=== PATIENT | male | born 1980 | race Caucasian/White ===

== ENCOUNTER 2021-08-20 01:33 | Emergency (ER) | payer BC, SELFPAY ==
[2021-08-20 01:41] VITALS: BP 154/92; PULSE 92; RESP 20; TEMP 36.8; O2SAT 97
[2021-08-20] MEDS: AMOXICILLIN/CLAVULANATE K 875-125 MG TAB 1 TABLET PO (01:54)
--- NOTE | 2021-08-20 02:06 | ED.ANIMALBIT ---
HPI - Animal Bite General Chief Complaint: Animal Bite Stated Complaint: dog bite to face - small lac to left jaw Time Seen by Provider: 08/20/21 01:38 Source: patient and family Mode of arrival: ambulatory Limitations: no limitations History of Present Illness HPI narrative: 41-year-old male presenting to the emergency department for evaluation of a laceration from a dog bite to his left chin. Patient states this is his dog of 15 years. Patient states he went to wake up his and the dog became startled and snapped at his face causing a laceration to the left jaw. Related Data Allergies Allergy/AdvReac Type Severity Reaction Status Date / Time No Known Allergies Allergy Mild Verified 08/20/21 01:44 Review of Systems Review of Systems: SKIN: Laceration to left jaw All systems reviewed & are unremarkable except as noted in HPI and below Exam Narrative: APPEARANCE: Well appearing, no pain, no distress, well-nourished. HEAD: normocephalic, atraumatic. EYES: PERRLA/EOMI, conjunctivae clear. NOSE: Normal no drainage EARS:TMS clear with good light reflex. SKIN: 1 cm laceration to left jaw Course Course Emergency Course: Laceration was repaired as described above. Wound was cleansed. Patient was started on Augmentin. Repaired as described in the procedure section. Laceration was closed with 2 sutures for cosmetic appearance. Wound was not closed tightly. Vital Signs Vital signs: Vital Signs Temperature 98.2 F 08/20/21 01:41 Pulse Rate 92 08/20/21 01:41 Respiratory Rate 20 08/20/21 01:41 Blood Pressure 154/92 H 08/20/21 01:41 Pulse Oximetry 97 08/20/21 01:41 Temperature 98.2 F 08/20/21 01:41 Pulse Rate 84 08/20/21 03:13 Respiratory Rate 14 08/20/21 03:13 Blood Pressure 139/87 08/20/21 03:13 Pulse Oximetry 97 08/20/21 03:13 Procedures Laceration Laceration 1: Date: 08/20/21 Time: 02:45 Site: face Side (If applicable): left Size (cm): 1 Description: linear Depth: simple, single layer Amount of anesthesia used (mL): 3 Pre-repair: irrigated ====== Skin Level ====== Skin layer closed with: nylon Size (cm): 6-0 Number of sutures: 2 Technique: simple, interrupted ====== Subcutaneous Layer ====== ====== Muscle Layer ====== ====== Tendon Layer ====== Discharge Plan Discharge Clinical Impression: Bite by animal Facial laceration Qualifiers: Encounter type: initial encounter Qualified Code(s): S01.81XA - Laceration without foreign body of other part of head, initial encounter Patient Disposition: Home, Self-Care Condition: Stable Instructions: Antibiotic Form, Animal Bite (ED) Additional Instructions: Antibiotic as directed. Sutures will need to be removed in 5 to 7 days. Wound care as directed. Have close follow-up with a primary care physician. If you have any worsening symptoms or if you have any questions or concerns and please call or return to the emergency room. Prescriptions: New amoxicillin-pot clavulanate 875-125 mg tablet 1 tablet PO Q12H Qty: 14 RF: 0 Follow-up/Referrals: Acosta Squires MD [Primary Care Provider] - Stand Alone Forms: Work/School Release IP
[2021-08-20 03:13] VITALS: BP 139/87; PULSE 84; RESP 14; O2SAT 97
== END 2021-08-20 03:14 | disposition home or self-care (01) ==
PROVIDERS: Emergency Provider Emergency Medicine; PCP Family Medicine Adolescent Medicine
DX: S01.85XA Open bite of other part of head, initial encounter (principal); W54.0XXA Bitten by dog, initial encounter
CPT/HCPCS: 12011; 99283; A9270

== ENCOUNTER 2022-10-07 23:29 | Emergency (ER) | payer BC, SELFPAY ==
[2022-10-07 23:34] VITALS: BP 132/86; PULSE 113; RESP 20; TEMP 37.4; O2SAT 97
--- NOTE | 2022-10-08 01:30 | ED.URI ---
HPI - URI/Sore Throat General Chief Complaint: Upper Respiratory Infection Stated Complaint: sore throat Time Seen by Provider: 10/08/22 01:22 History of Present Illness HPI Narrative: Patient is a 42-year-old male here for evaluation of sore throat, sinus congestion, body aches x2 days. Patient has been using DayQuil, NyQuil and Sudafed without relief of symptoms. He states that he left work tonight due to the severity of the symptoms and is requesting a work note. Denies any sick contacts. He has not been vaccinated against COVID. He has had no chest pain or shortness of breath, he has not yet taken his temperature. No past medical history. Related Data Allergies Allergy/AdvReac Type Severity Reaction Status Date / Time No Known Allergies Allergy Mild Verified 10/07/22 23:48 Review of Systems Review of Systems: Gen.: Denies fevers or chills Eyes: Denies eye pain or visual change ENT: Reports congestion and sore throat Respiratory: Denies shortness of breath or cough CV: Denies chest pain or palpitations GI: Denies abdominal pain nausea, emesis or diarrhea denies burning, urgency, frequency or hematuria Musculoskeletal: Denies back pain or muscle pain Neuro: Denies numbness, tingling, weakness or focal weakness Skin: Denies rash Except as documented, all other systems reviewed and negative [facility] Family History Family History (Updated 11/07/21 @ 11:07 by Soraida Marquez MA) Father Diabetes mellitus Mother Breast cancer Social History Social History (Updated 11/07/21 @ 11:07 by Soraida Marquez MA) Smoking packs per day: 1 Smoking cigarettes per day: 20.0 Years smoked: 20 Smoking pack-years: 20.00 Smoking status: Current every day smoker Second hand tobacco smoke exposure: Yes Alcohol intake: current Drinks per week: 10 Substance use: never Substance use type: does not use Living arrangements: with friend(s) Occupation/Education: occupation Gender identity (if verbalized by the patient): Male Sexual Orientation (if Verbalized by the Patient): Straight or Heterosexual Spiritual care concerns: No Agree to blood products: Yes Exam Narrative: APPEARANCE: Well appearing, no pain in distress, well-nourished. Head: Normocephalic and atraumatic. EYES: PERRLA/EOMI, conjunctivae clear NOSE: No nasal drainage EARS: External ear normal in appearance THROAT: Erythematous posterior oropharynx. No tonsillar exudates. Uvula is midline. NECK: Tender anterior cervical lymphadenopathy RESPIRATORY: Airway patent, respirations nonlabored. Clear to auscultation bilaterally, no rales, rhonchi, wheezing. CARDIOVASCULAR: Regular rate and rhythm without murmurs, rubs, or gallops. ABDOMINAL: Normoactive bowel sounds. Soft, nontender, nondistended. No rebound tenderness or guarding. MUSCULOSKELETAL: Extremities are warm and well-perfused. Moves all extremities well. No edema. NEURO: Normal speech. No focal neurologic deficits. SKIN: Skin is warm and dry. No rashes. PSYCHIATRIC: Normal affect/mood.. Course Vital Signs Vital signs: Vital Signs Temperature 99.4 F 10/07/22 23:34 Pulse Rate 113 H 10/07/22 23:34 Respiratory Rate 20 10/07/22 23:34 Blood Pressure 132/86 10/07/22 23:34 Pulse Oximetry 97 10/07/22 23:34 Oxygen Delivery Room Air 10/07/22 23:34 Temperature 99.4 F 10/07/22 23:34 Pulse Rate 113 H 10/07/22 23:34 Respiratory Rate 20 10/07/22 23:34 Blood Pressure 132/86 10/07/22 23:34 Pulse Oximetry 97 10/07/22 23:34 Oxygen Delivery Room Air 10/07/22 23:34 MDM - URI/Sore Throat MDM Narrative Medical decision making narrative: 42-year-old male here due to upper respiratory infectious symptoms for the past several days. He is nontoxic in appearance and has normal vital signs. Tolerating his secretions, clear heart and lungs to auscultation. COVID and flu was negative. Patient was given Decadron and Tylenol with improvement of his sy
[2022-10-08] MEDS: ACETAMINOPHEN 325 MG TABLET 650 MG PO (01:42)
[2022-10-08 02:05] LABS: Strep Group A RT-PCR NOT DETECTED (Negative)
[2022-10-08 02:06] LABS: SARS-CoV-2 RNA PCR Negative
== END 2022-10-08 02:50 | disposition home or self-care (01) ==
PROVIDERS: Emergency Provider Physician Assistant; PCP Family Medicine Adolescent Medicine
DX: J02.9 Acute pharyngitis, unspecified (principal); Z20.822 Contact with and (suspected) exposure to COVID-19; F17.210 Nicotine dependence, cigarettes, uncomplicated; Z28.310 Unvaccinated for COVID-19
CPT/HCPCS: 87651; 96372; 99283; A9270; J1100; U0003; U0005